=== PATIENT | female | born 1950 | race Caucasian/White ===

== ENCOUNTER 2017-04-29 07:48 | Day surgery (SDC) | payer BC, OTHER ==
[2017-04-24 11:01] VITALS: BMI 22.3
[2017-04-29] MEDS ORDERED: PROPOFOL 20 ML ONE ×2 (07:54)
[2017-04-29] MEDS ORDERED: LIDOCAINE HCL/PF 2% SDV 5ML VIAL ONE (07:55)
[2017-04-29 09:53] VITALS: BP 106/58; PULSE 57; TEMP 97.9
--- NOTE | 2017-05-02 16:11 | PATH ---
Surgical Pathology Report Patient Name: KAE ESCOBAR [facility]. Rec. #: [id number] /Age/Gender: 1950 (Age: 66) / F Account: [id number] [facility] Taken: 04/29/2017 Received: 04/29/2017 Reported: 05/02/2017 Physicians: Aric Merritt M.D. Specimen(s) Received A: BX ANTRUM B: BX BODY C: BX DUODENUM Clinical History GI lymphoma, rule out colon cancer Rule out celiac disease, gastritis Final Diagnosis A. 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 IMMUNOSTAIN IS NEGATIVE FOR H. PYLORI ORGANISMS. B. BODY, BIOPSY: MILD CHRONIC GASTRITIS. IMMUNOSTAIN IS NEGATIVE FOR H. PYLORI ORGANISMS. C. DUODENUM, BIOPSY: DUODENAL MUCOSA WITH NO PATHOLOGIC FINDINGS. Note: Features suggestive of celiac disease are not identified in this biopsy. Electronically Signed Ana Wallace M.D. Gross Description A. Received in formalin, labeled "antrum" are two fragments of morataya-pink tissue 0.3 cm in largest dimension each. Submitted entirely in one cassette. B. Received in formalin, labeled "body" are two fragments of morataya-pink tissue 0.4 cm in greatest dimension each. Submitted entirely in one cassette. C. Received in formalin, labeled "duodenum" are two fragments of morataya-pink tissue 0.2-0.3 cm in greatest dimension each. Submitted entirely in one cassette. AF/04/29/2017 final/04/29/2017
== END 2017-04-29 10:00 | disposition home or self-care (01) ==
LOC: FASU-ENDO 07:48
PROVIDERS: ATTEND Internal Medicine Gastroenterology
PROC: 0DB68ZX Excision of Stomach, Via Natural or Artificial Opening Endoscopic, Diagnostic (ICD-10-PCS; 2017-04-29)
PROC: 0DJD8ZZ Inspection of Lower Intestinal Tract, Via Natural or Artificial Opening Endoscopic (ICD-10-PCS; principal; 2017-04-29 08:40)
PROC: 0DB98ZX Excision of Duodenum, Via Natural or Artificial Opening Endoscopic, Diagnostic (ICD-10-PCS; 2017-04-29 08:40)
DX: Z12.11 Encounter for screening for malignant neoplasm of colon (principal); Z85.028 Personal history of other malignant neoplasm of stomach; K29.50 Unspecified chronic gastritis without bleeding
CPT/HCPCS: 43239; G0105; 88305-TC; 88342-TC

== ENCOUNTER 2021-06-14 07:34 | Day surgery (SDC) | payer OTHER, MEDICARE ==
[2021-06-13 10:50] VITALS: BMI 22.3
[2021-06-14] MEDS ORDERED: LIDOCAINE HCL/PF 2% SDV 5ML VIAL ONE (07:42)
[2021-06-14] MEDS ORDERED: PROPOFOL 20 ML ONE ×4 (07:42)
[2021-06-14 07:50] VITALS: TEMP 97.8
[2021-06-14 09:26] VITALS: BP 110/65; PULSE 66
== END 2021-06-14 09:15 | disposition home or self-care (01) ==
LOC: FASU-ENDO 07:34
PROVIDERS: ATTEND Internal Medicine Gastroenterology
PROC: 0DB68ZX Excision of Stomach, Via Natural or Artificial Opening Endoscopic, Diagnostic (ICD-10-PCS; 2021-06-14)
PROC: 0DB98ZX Excision of Duodenum, Via Natural or Artificial Opening Endoscopic, Diagnostic (ICD-10-PCS; principal; 2021-06-14 08:27)
DX: K29.50 Unspecified chronic gastritis without bleeding (principal); K31.9 Disease of stomach and duodenum, unspecified; Z85.028 Personal history of other malignant neoplasm of stomach; R11.10 Vomiting, unspecified

== ENCOUNTER 2023-12-16 07:28 | Day surgery (SDC) | payer OTHER, MEDICARE ==
[2023-12-12 11:56] VITALS: BMI 22.6
[2023-12-16] MEDS ORDERED: LIDOCAINE HCL/PF 2% SDV 5ML VIAL ONE (07:42)
[2023-12-16] MEDS ORDERED: PROPOFOL 160 ML ONE (07:43)
[2023-12-16 09:08] VITALS: TEMP 97.6
[2023-12-16 09:34] VITALS: BP 103/64; PULSE 79; RESP 18
== END 2023-12-16 09:35 | disposition home or self-care (01) ==
LOC: FASU-ENDO 07:28
PROVIDERS: ATTEND Internal Medicine Gastroenterology
PROC: 0DB68ZX Excision of Stomach, Via Natural or Artificial Opening Endoscopic, Diagnostic (ICD-10-PCS; 2023-12-16)
PROC: 0DB78ZX Excision of Stomach, Pylorus, Via Natural or Artificial Opening Endoscopic, Diagnostic (ICD-10-PCS; 2023-12-16)
PROC: 0DBN8ZX Excision of Sigmoid Colon, Via Natural or Artificial Opening Endoscopic, Diagnostic (ICD-10-PCS; principal; 2023-12-16 08:19)
DX: Z12.11 Encounter for screening for malignant neoplasm of colon (principal); D12.5 Benign neoplasm of sigmoid colon; K31.A15 Gastric intestinal metaplasia without dysplasia, involving multiple sites; K29.50 Unspecified chronic gastritis without bleeding; Z85.028 Personal history of other malignant neoplasm of stomach; Z86.010 Personal history of colon polyps
CPT/HCPCS: 88305-TC; 88342-TC